=== PATIENT | female | born 1940 | race Caucasian/White ===

== ENCOUNTER 2018-05-31 09:10 | Inpatient (IN) ==
[~2018-05-31 09:10] MED LIST: LEVALBUTEROL 1.25 MG/3 ML NEB RESP TX SCH
[2018-05-31] MEDS ORDERED: ASPIRIN 325 MG TABLET PO STA (09:39)
[2018-05-31] MEDS ORDERED: DILTIAZEM 50 MG/10 ML VIAL IV STA (09:39)
[2018-05-31] MEDS ORDERED: SODIUM CHLORIDE 0.9% 500 ML IV STA (09:40)
[2018-05-31] MEDS ORDERED: DILTIAZEM 25 MG/5 ML VIAL IV ONE ×2 (10:02→18:00)
[2018-05-31 10:03] LABS: Basophils # 0.1 10*3/uL (0.0-0.2); Basophils % 0.5 % (0.0-0.8); Eosinophils % 0.1 % (0.00-10.9); Hematocrit 34.4 VOL% (35.7-47.0); Hemoglobin 11.2 GM/DL (12.0-16.0); Immature Granulocytes % 0.6 %; Immature Granulocytes Absolute 0.06 #; Lymphocytes # 0.9 10*3/uL (1.4-4.0); Lymphocytes % 8.9 % (21.3-54.2); Mean Corpuscular HGB Conc 32.6 GM/DL (32-36); Mean Corpuscular Hemoglobin 29 PG (27-34); Mean Corpuscular Volume 89.4 FL (87-102); Mean Platelet Volume 11.3 FL (9.6-12.0); Monocytes % 9.7 % (1.7-12.7); Neutrophils # 8.4 10*3/uL (1.4-7.4); Neutrophils % 80.2 % (38.7-73.9); Platelet Count 185 T/CUMM (130-400); Red Blood Count 3.85 MC/CUMM (3.8-5.5); Red Cell Distribution Width 13.7 % (9.3-17.3); White Blood Count 10.4 T/CUMM (4-12)
[2018-05-31] MEDS ORDERED: cefTRIAXone 1,000 MG in SODIUM CHLORIDE 0.9% 100 ML IV STA (10:08)
[2018-05-31] MEDS ORDERED: AZITHROMYCIN INJ 500 MG in SODIUM CHLORIDE 0.9% 250 ML IV STA (10:08)
[2018-05-31 10:17] LABS: INR 4.7
[2018-05-31 10:21] LABS: Lactic Acid 1.2 MMOL/L (0.4-2.0)
[2018-05-31 10:22] LABS: Troponin I < 0.015 NG/ML (0.00-0.045)
[2018-05-31 10:28] LABS: Albumin 2.8 G/DL (3.4-5.0); Bilirubin,Total 0.6 MG/DL (0.2-1.0); Calcium 8.7 MG/DL (8.5-10.1); Osmolality,Calculated 268.2 MOS/KG (273-304); Potassium 3.8 MMOL/L (3.5-5.1); Total Protein 6.7 G/DL (6.4-8.3)
[2018-05-31 10:30] LABS: PT Patient Result 50.8 SECS
[2018-05-31] MEDS ORDERED: FUROSEMIDE 40 MG/4 ML VIAL IV STA (10:37)
[2018-05-31] MEDS ORDERED: ONDANSETRON 4 MG/2 ML VIAL IV PRN (10:44)
[2018-05-31] MEDS ORDERED: ACETAMINOPHEN 325 MG TABLET PO PRN (10:44)
[2018-05-31] MEDS ORDERED: WARFARIN 5 MG TABLET PO SCH (13:30)
[2018-05-31] MEDS: methylPREDNISolone SOD SUC 40 MG/1 ML VIAL IV SCH (16:02)
[2018-05-31] MEDS: MAGNESIUM OXIDE 400 MG TABLET PO SCH ×2 (16:21→21:56)
[2018-05-31] MEDS ORDERED: LEVALBUTEROL 1.25 MG/3 ML NEB RESP TX ONE (17:50)
[2018-05-31] MEDS ORDERED: dilTIAZem Drip 125 MG/125 ML PREMIX IV SCH (18:00)
[2018-05-31] MEDS ORDERED: ALBUTEROL/IPRATROPIUM 3 ML NEB RESP TX SCH (19:00)
[2018-05-31] MEDS ORDERED: DILTIAZEM 30 MG TABLET PO SCH (21:00)
[2018-05-31] MEDS: SOTALOL 80 MG TABLET PO SCH (21:53)
[2018-05-31] MEDS: DOCUSATE SODIUM 100 MG CAPSULE PO SCH (21:56)
[2018-06-01] MEDS: LEVALBUTEROL 1.25 MG/3 ML NEB RESP TX SCH ×4 (01:10→19:12)
[2018-06-01] MEDS: methylPREDNISolone SOD SUC 40 MG/1 ML VIAL IV SCH ×2 (03:47→16:21)
[2018-06-01 06:27] LABS: Basophils % 0.2 % (0.0-0.8); Hematocrit 35.4 VOL% (35.7-47.0); Hemoglobin 10.9 GM/DL (12.0-16.0); INR 3.8; Immature Granulocytes % 0.3 %; Immature Granulocytes Absolute 0.02 #; Lymphocytes # 0.7 10*3/uL (1.4-4.0); Lymphocytes % 10.8 % (21.3-54.2); Mean Corpuscular HGB Conc 30.8 GM/DL (32-36); Mean Corpuscular Hemoglobin 28 PG (27-34); Mean Corpuscular Volume 91.9 FL (87-102); Mean Platelet Volume 12.3 FL (9.6-12.0); Monocytes # 0.2 10*3/uL (0.11-0.8); Monocytes % 2.3 % (1.7-12.7); Neutrophils # 5.5 10*3/uL (1.4-7.4); Neutrophils % 86.4 % (38.7-73.9); Platelet Count 185 T/CUMM (130-400); Red Blood Count 3.85 MC/CUMM (3.8-5.5); Red Cell Distribution Width 13.9 % (9.3-17.3); White Blood Count 6.4 T/CUMM (4-12)
[2018-06-01 06:50] LABS: Albumin 2.6 G/DL (3.4-5.0); Bilirubin,Total 0.5 MG/DL (0.2-1.0); Calcium 8.7 MG/DL (8.5-10.1); Osmolality,Calculated 279.7 MOS/KG (273-304); Potassium 3.8 MMOL/L (3.5-5.1); Thyroid Stimulating Hormone 0.197 uIU/ml (0.358-3.74)
[2018-06-01 07:13] LABS: PT Patient Result 40.5 SECS
[2018-06-01] MEDS ORDERED: LISINOPRIL 20 MG TABLET PO SCH (09:00)
[2018-06-01] MEDS: cefTRIAXone 1,000 MG in SYRINGE 1 EACH IV SCH (09:33)
[2018-06-01] MEDS: ASPIRIN EC 81 MG TABLET PO SCH (10:02)
[2018-06-01] MEDS: SOTALOL 80 MG TABLET PO SCH ×2 (10:02→22:05)
[2018-06-01] MEDS: DOCUSATE SODIUM 100 MG CAPSULE PO SCH ×2 (10:32→22:06)
[2018-06-01] MEDS: MAGNESIUM OXIDE 400 MG TABLET PO SCH ×4 (10:32→22:06)
[2018-06-01] MEDS ORDERED: PROPOFOL 200 MG/20 ML VIAL IV ONE (10:39)
[2018-06-01] MEDS: PANTOPRAZOLE 40 MG TABLET PO SCH (11:12)
[2018-06-01] MEDS: TERAZOSIN 10 MG CAPSULE PO SCH (11:12)
[2018-06-01] MEDS: AZITHROMYCIN INJ 250 MG in SODIUM CHLORIDE 0.9% 250 ML IV SCH (11:41)
[2018-06-01] MEDS: FUROSEMIDE 40 MG/4 ML VIAL IV SCH ×2 (12:08→16:21)
[2018-06-01] MEDS ORDERED: WARFARIN 5 MG TABLET PO SCH (18:00)
[2018-06-02] MEDS: LEVALBUTEROL 1.25 MG/3 ML NEB RESP TX SCH ×4 (00:48→19:37)
[2018-06-02 04:47] LABS: INR 3.7
[2018-06-02 04:57] LABS: Calcium 8.8 MG/DL (8.5-10.1); Osmolality,Calculated 288.5 MOS/KG (273-304); Potassium 3.8 MMOL/L (3.5-5.1)
[2018-06-02] MEDS: methylPREDNISolone SOD SUC 40 MG/1 ML VIAL IV SCH ×2 (05:10→16:50)
[2018-06-02 06:03] LABS: PT Patient Result 40.1 SECS
[2018-06-02] MEDS: cefTRIAXone 1,000 MG in SYRINGE 1 EACH IV SCH (10:03)
[2018-06-02] MEDS: SOTALOL 80 MG TABLET PO SCH ×2 (10:06→20:06)
[2018-06-02] MEDS: MAGNESIUM OXIDE 400 MG TABLET PO SCH ×4 (10:07→20:06)
[2018-06-02] MEDS: DOCUSATE SODIUM 100 MG CAPSULE PO SCH ×2 (10:08→20:06)
[2018-06-02] MEDS: PANTOPRAZOLE 40 MG TABLET PO SCH (10:08)
[2018-06-02] MEDS: FUROSEMIDE 40 MG/4 ML VIAL IV SCH (10:08)
[2018-06-02] MEDS: ASPIRIN EC 81 MG TABLET PO SCH (10:08)
[2018-06-02] MEDS: TERAZOSIN 10 MG CAPSULE PO SCH (12:11)
[2018-06-02] MEDS: AZITHROMYCIN INJ 250 MG in SODIUM CHLORIDE 0.9% 250 ML IV SCH (12:11)
[2018-06-02] MEDS: FUROSEMIDE 40 MG TABLET PO SCH (17:20)
[2018-06-02] MEDS ORDERED: dilTIAZem Drip 125 MG/125 ML PREMIX IV SCH (23:30)
[2018-06-03] MEDS: LEVALBUTEROL 1.25 MG/3 ML NEB RESP TX SCH ×3 (00:45→13:26)
[2018-06-03] MEDS: methylPREDNISolone SOD SUC 40 MG/1 ML VIAL IV SCH ×2 (04:28→17:19)
[2018-06-03 05:38] LABS: Basophils % 0.2 % (0.0-0.8); Hematocrit 32.3 VOL% (35.7-47.0); Hemoglobin 10.2 GM/DL (12.0-16.0); Immature Granulocytes % 1.3 %; Immature Granulocytes Absolute 0.15 #; Lymphocytes # 0.7 10*3/uL (1.4-4.0); Lymphocytes % 6.1 % (21.3-54.2); Mean Corpuscular HGB Conc 31.6 GM/DL (32-36); Mean Corpuscular Hemoglobin 29 PG (27-34); Mean Corpuscular Volume 92.3 FL (87-102); Mean Platelet Volume 11.5 FL (9.6-12.0); Monocytes # 0.7 10*3/uL (0.11-0.8); Neutrophils # 9.8 10*3/uL (1.4-7.4); Neutrophils % 86.4 % (38.7-73.9); Platelet Count 229 T/CUMM (130-400); White Blood Count 11.3 T/CUMM (4-12)
[2018-06-03 05:59] LABS: Calcium 8.6 MG/DL (8.5-10.1); Osmolality,Calculated 290.5 MOS/KG (273-304); Potassium 3.7 MMOL/L (3.5-5.1)
[2018-06-03 06:19] LABS: INR 2.9
[2018-06-03 06:58] LABS: PT Patient Result 30.7 SECS
[2018-06-03] MEDS: SOTALOL 80 MG TABLET PO SCH (09:35)
[2018-06-03] MEDS: PANTOPRAZOLE 40 MG TABLET PO SCH (09:37)
[2018-06-03] MEDS: ASPIRIN EC 81 MG TABLET PO SCH (09:37)
[2018-06-03] MEDS: MAGNESIUM OXIDE 400 MG TABLET PO SCH (09:37)
[2018-06-03] MEDS: FUROSEMIDE 40 MG TABLET PO SCH (09:37)
[2018-06-03] MEDS: DOCUSATE SODIUM 100 MG CAPSULE PO SCH (09:38)
[2018-06-03] MEDS: TERAZOSIN 10 MG CAPSULE PO SCH (09:39)
[2018-06-03] MEDS: cefTRIAXone 1,000 MG in SYRINGE 1 EACH IV SCH (09:40)
[2018-06-03] MEDS: AZITHROMYCIN INJ 250 MG in SODIUM CHLORIDE 0.9% 250 ML IV SCH (09:45)
[2018-06-03] MEDS ORDERED: DILTIAZEM 30 MG TABLET PO SCH (15:00)
[2018-06-03 16:08] VITALS: BP 160/84
[2018-06-03] MEDS ORDERED: WARFARIN 2.5 MG TABLET PO SCH (18:00)
[2018-06-04] MEDS ORDERED: MAGNESIUM OXIDE 400 MG TABLET PO SCH (09:00)
== END 2018-06-03 18:50 | disposition home health service (06) | DRG 193 ==
LOC: N.ED 09:10 → N.EDINP 10:44 → N.TELES 11:46
PROVIDERS: ADMIT Family Medicine; ATTEND Family Medicine

== ENCOUNTER 2018-06-07 15:24 | Inpatient (IN) ==
[2018-06-07] MEDS ORDERED: ROCURONIUM 100 MG/10 ML VIAL IV ONE (15:44)
[2018-06-07] MEDS ORDERED: ETOMIDATE 20 MG/10 ML VIAL IV ONE (15:44)
[2018-06-07] MEDS ORDERED: VECURONIUM 10 MG VIAL IV ONE (15:48)
[2018-06-07 16:15] LABS: Basophils % 0.1 % (0.0-0.8); Hematocrit 36.3 VOL% (35.7-47.0); Hemoglobin 12.1 GM/DL (12.0-16.0); Immature Granulocytes Absolute 0.13 #; Lymphocytes # 0.9 10*3/uL (1.4-4.0); Lymphocytes % 7.3 % (21.3-54.2); Mean Corpuscular HGB Conc 33.3 GM/DL (32-36); Mean Corpuscular Hemoglobin 29 PG (27-34); Mean Corpuscular Volume 87.3 FL (87-102); Mean Platelet Volume 10.9 FL (9.6-12.0); Monocytes # 0.7 10*3/uL (0.11-0.8); Monocytes % 5.2 % (1.7-12.7); Neutrophils # 10.7 10*3/uL (1.4-7.4); Neutrophils % 86.4 % (38.7-73.9); Platelet Count 255 T/CUMM (130-400); Red Blood Count 4.16 MC/CUMM (3.8-5.5); Red Cell Distribution Width 13.7 % (9.3-17.3); White Blood Count 12.4 T/CUMM (4-12)
[2018-06-07 16:23] LABS: ABG Base Excess 13.9 MMOL/L (-2.5-2.5); ABG HCO3 37.8 MMOL/L (20-26); ABG Oxygen Saturation 99.6 % (95-100); ABG PCO2 36.5 MM HG (35-48); ABG TCO2 32.1 MMOL/L (23-27); Pt O2 Delivery Device Ventilator
[2018-06-07 16:24] LABS: INR 1.5; PT Patient Result 16.6 SECS
[2018-06-07] MEDS ORDERED: PROPOFOL 1,000 MG/100 ML BOTTLE IV ONE (16:37)
[2018-06-07] MEDS: PROPOFOL 1,000 MG/100 ML BOTTLE IV SCH (16:40)
[2018-06-07 16:41] LABS: Alanine Aminotransferase 31 U/L (13-56); Albumin 2.3 G/DL (3.4-5.0); Alkaline Phosphatase 64 U/L (45-117); Apearance,Urine CLEAR (Clear); Aspartate Amino Transferase 27 U/L (0-37); Bilirubin,Urine Negative (Negative); Blood Urea Nitrogen 27 MG/DL (7-18); Blood, Urine Small mg/dL (Negative); Glucose 187 MG/DL (74-106); Glucose,Urine (UA) 50 mg/dL (Negative); Ketones,Urine Negative (Negative); Mucus,Urine Occasional /LPF (Occasional); Nitrite,Urine Negative (Negative); Osmolality,Calculated 277.2 MOS/KG (273-304); Protein,Urine Negative; RBC,Urine 2 /HPF (0-4); Sodium 134 MMOL/L (136-145); Troponin I 0.041 NG/ML (0.00-0.045); Urine Color Straw (Yellow); Urine Specific Gravity 1.006 (1.001-1.035); Urine Urobilinogen < 2.0 EU/DL (0.2-1.0); WBC,Urine 4 /HPF (0-6)
[2018-06-07 16:46] LABS: Barbiturates Screen,Urine Negative (Negative); Benzodiazepines Screen,Urine Negative (Negative); Cannabinoid Screen,Urine Negative (Negative); Opiate Screen,Urine Negative (Negative); Phencyclidine Screen,Urine Negative (Negative)
[2018-06-07 16:47] LABS: Potassium 2.4 MMOL/L (3.5-5.1)
[2018-06-07] MEDS ORDERED: MAGNESIUM SULF RIDER 2 GM in PREMIX 1 EACH IV STA (16:51)
[2018-06-07] MEDS ORDERED: POTASSIUM CHLORIDE RIDER 20 MEQ in PREMIX 1 EACH IV STA (16:51)
[2018-06-07] MEDS ORDERED: MAGNESIUM SULF RIDER 50 ML IV ONE (16:53)
[2018-06-07] MEDS ORDERED: FUROSEMIDE 40 MG/4 ML VIAL IV STA (16:55)
[2018-06-07] MEDS ORDERED: SODIUM CHLORIDE 0.9% IV STA (16:56)
[2018-06-07] MEDS ORDERED: POTASSIUM ACETATE IV STA (16:56)
[2018-06-07] MEDS ORDERED: POTASSIUM CHLORIDE INJ 40 MEQ in SODIUM CHLORIDE 0.9% 250 ML IV STA (17:02)
[2018-06-07] MEDS ORDERED: PHENYLEPHRINE DRIP 40 MG/250 ML PREMIX IV ONE (17:14)
[2018-06-07] MEDS ORDERED: ONDANSETRON 4 MG/2 ML VIAL IV PRN (17:42)
[2018-06-07] MEDS ORDERED: MAGNESIUM SULF RIDER 4 GM in PREMIX 1 EACH IV PRN (17:48)
[2018-06-07] MEDS ORDERED: DEXTROSE 50% 25 GM/50 ML VIAL IV PRN (17:52)
[2018-06-07] MEDS ORDERED: GLUCAGON 1 MG VIAL IM PRN (17:52)
[2018-06-07 17:54] LABS: ABG Base Excess 14.9 MMOL/L (-2.5-2.5); ABG HCO3 38.9 MMOL/L (20-26); ABG PCO2 34.2 MM HG (35-48); ABG TCO2 32.1 MMOL/L (23-27)
[2018-06-07 18:00] LABS: ABG PH 7.644 (7.35-7.45)
[2018-06-07] MEDS ORDERED: ATROPINE 1 MG/10 ML SYRINGE ONE (18:22)
[2018-06-07] MEDS ORDERED: ISOPROTERENOL IV PRN (18:29)
[2018-06-07] MEDS ORDERED: SODIUM CHLORIDE 0.9% IV PRN (18:29)
[2018-06-07] MEDS ORDERED: ATROPINE 1 MG/10 ML SYRINGE IV ONE (18:48)
[2018-06-07] MEDS: SODIUM CHLORIDE 0.9% 1,000 ML IV SCH (19:00)
[2018-06-07 19:05] LABS: ABG HCO3 25.1 MMOL/L (20-26); ABG PCO2 42.4 MM HG (35-48); ABG PH 7.397 (7.35-7.45); ABG PO2 66.7 MM HG (80-95); ABG TCO2 22.3 MMOL/L (23-27)
[2018-06-07] MEDS ORDERED: LIDOCAINE 1% 20 ML VIAL ONE (19:06)
[2018-06-07] MEDS ORDERED: HEPARIN/NACL 0.9% 2 UNITS/ML 500 ML IV ONE (19:06)
[2018-06-07] MEDS: INSULIN REGULAR 100 UNIT/ML SUBCUT SCH ×2 (20:18→23:53)
[2018-06-07] MEDS ORDERED: PHENYLEPHRINE DRIP 40 MG/250 ML PREMIX IV PRN (20:19)
[2018-06-07] MEDS: ENOXAPARIN 80 MG/0.8 ML SYRINGE SUBCUT SCH (22:15)
[2018-06-07] MEDS: HYDROCORTISONE 100 MG VIAL IV SCH (22:15)
[2018-06-07] MEDS ORDERED: SODIUM CHLORIDE 0.9% 250 ML IV ONE (22:24)
[2018-06-07] MEDS ORDERED: AMIODARONE INJ 150 MG in DEXTROSE 5% 100 ML IV ONE (23:06)
[2018-06-07] MEDS ORDERED: AMIODARONE 150 MG/3 ML VIAL ONE (23:08)
[2018-06-07] MEDS ORDERED: AMIODARONE 450 MG/9 ML VIAL IV ONE (23:10)
[2018-06-07] MEDS: POTASSIUM CHLORIDE RIDER 10 MEQ in PREMIX 1 EACH IV PRN (23:26)
[2018-06-07] MEDS ORDERED: AMIODARONE INJ 450 MG in DEXTROSE 5% 241 ML IV SCH (23:30)
[2018-06-08] MEDS: POTASSIUM CHLORIDE RIDER 10 MEQ in PREMIX 1 EACH IV PRN ×2 (00:27→01:34)
[2018-06-08] MEDS: PROPOFOL 1,000 MG/100 ML BOTTLE IV SCH ×4 (01:00→21:48)
[2018-06-08 01:31] LABS: Basophils % 0.1 % (0.0-0.8); Immature Granulocytes % 0.7 %; Lymphocytes # 0.9 10*3/uL (1.4-4.0); Lymphocytes % 6.2 % (21.3-54.2); Mean Corpuscular HGB Conc 33.3 GM/DL (32-36); Mean Corpuscular Hemoglobin 29 PG (27-34); Mean Corpuscular Volume 87.6 FL (87-102); Monocytes # 1.2 10*3/uL (0.11-0.8); Monocytes % 7.9 % (1.7-12.7); Neutrophils # 12.8 10*3/uL (1.4-7.4); Neutrophils % 85.1 % (38.7-73.9); Platelet Count 237 T/CUMM (130-400); Red Blood Count 4.11 MC/CUMM (3.8-5.5); Red Cell Distribution Width 13.9 % (9.3-17.3); White Blood Count 15.1 T/CUMM (4-12)
[2018-06-08] MEDS: SODIUM CHLORIDE 0.9% 1,000 ML IV SCH ×2 (02:00→10:00)
[2018-06-08 02:08] LABS: Calcium 7.8 MG/DL (8.5-10.1); Osmolality,Calculated 278.1 MOS/KG (273-304); Potassium 4.1 MMOL/L (3.5-5.1); Risk Ratio 3.14; VLDL CHOLESTEROL 24.8 MG/DL
[2018-06-08 03:46] LABS: ABG Base Excess 12.3 MMOL/L (-2.5-2.5); ABG Oxygen Saturation 99.5 % (95-100); ABG PCO2 29.7 MM HG (35-48); ABG TCO2 33.9 MMOL/L (23-27); Allen Test Positive; Pt O2 Delivery Device Ventilator
[2018-06-08 03:56] LABS: ABG PH 7.664 (7.35-7.45)
[2018-06-08] MEDS: HYDROCORTISONE 100 MG VIAL IV SCH ×3 (05:10→21:29)
[2018-06-08] MEDS ORDERED: AMIODARONE INJ 450 MG in DEXTROSE 5% 241 ML IV SCH (05:30)
[2018-06-08] MEDS: INSULIN REGULAR 100 UNIT/ML SUBCUT SCH ×4 (06:28→23:38)
[2018-06-08 07:20] LABS: ABG Base Excess 11.3 MMOL/L (-2.5-2.5); ABG HCO3 35.1 MMOL/L (20-26); ABG Oxygen Saturation 99.7 % (95-100); ABG PCO2 37.9 MM HG (35-48); ABG PH 7.566 (7.35-7.45); ABG TCO2 30.3 MMOL/L (23-27); Allen Test Positive; Pt O2 Delivery Device Ventilator
[2018-06-08] MEDS: ENOXAPARIN 80 MG/0.8 ML SYRINGE SUBCUT SCH ×2 (09:32→21:30)
[2018-06-08] MEDS: PANTOPRAZOLE 40 MG VIAL IV SCH (09:33)
[2018-06-09] MEDS: PROPOFOL 1,000 MG/100 ML BOTTLE IV SCH ×2 (03:58→09:00)
[2018-06-09 04:01] LABS: ABG Base Excess 10.3 MMOL/L (-2.5-2.5); ABG HCO3 34.1 MMOL/L (20-26); ABG Oxygen Saturation 99.2 % (95-100); ABG PCO2 43.1 MM HG (35-48); ABG PH 7.512 (7.35-7.45); ABG TCO2 30.8 MMOL/L (23-27); Allen Test Positive; Pt O2 Delivery Device Ventilator
[2018-06-09] MEDS: HYDROCORTISONE 100 MG VIAL IV SCH ×3 (05:05→21:17)
[2018-06-09] MEDS: INSULIN REGULAR 100 UNIT/ML SUBCUT SCH ×2 (05:37→12:32)
[2018-06-09] MEDS: SODIUM CHLORIDE 0.9% 1,000 ML IV SCH (06:00)
[2018-06-09 06:03] LABS: Basophils % 0.1 % (0.0-0.8); Hemoglobin 10.6 GM/DL (12.0-16.0); Immature Granulocytes % 0.7 %; Immature Granulocytes Absolute 0.08 #; Lymphocytes # 1.4 10*3/uL (1.4-4.0); Lymphocytes % 12.3 % (21.3-54.2); Mean Corpuscular HGB Conc 31.2 GM/DL (32-36); Mean Corpuscular Hemoglobin 29 PG (27-34); Mean Corpuscular Volume 91.6 FL (87-102); Mean Platelet Volume 11.8 FL (9.6-12.0); Monocytes # 0.8 10*3/uL (0.11-0.8); Monocytes % 7.4 % (1.7-12.7); Neutrophils # 8.8 10*3/uL (1.4-7.4); Neutrophils % 79.5 % (38.7-73.9); Platelet Count 166 T/CUMM (130-400); Red Blood Count 3.71 MC/CUMM (3.8-5.5); Red Cell Distribution Width 14.6 % (9.3-17.3); White Blood Count 11.1 T/CUMM (4-12)
[2018-06-09 06:27] LABS: Prealbumin 15.5 MG/DL (20-40)
[2018-06-09 06:42] LABS: Calcium 8.2 MG/DL (8.5-10.1); Osmolality,Calculated 283.4 MOS/KG (273-304); Potassium 2.8 MMOL/L (3.5-5.1)
[2018-06-09] MEDS: POTASSIUM CHLORIDE RIDER 10 MEQ in PREMIX 1 EACH IV PRN ×2 (06:50→09:53)
[2018-06-09] MEDS ORDERED: POTASSIUM CHLORIDE 20 MEQ/15 ML UDCUP PER TUBE ONE (08:04)
[2018-06-09] MEDS: PANTOPRAZOLE 40 MG VIAL IV SCH (09:52)
[2018-06-09] MEDS: ENOXAPARIN 80 MG/0.8 ML SYRINGE SUBCUT SCH ×2 (09:52→21:17)
[2018-06-09] MEDS ORDERED: LISINOPRIL 20 MG TABLET PO SCH (16:00)
[2018-06-09] MEDS: POTASSIUM CHLORIDE 20 MEQ TABLET PO PRN ×2 (21:17→23:16)
[2018-06-10] MEDS: SODIUM CHLORIDE 0.9% 1,000 ML IV SCH (02:21)
[2018-06-10 03:46] LABS: ABG Base Excess 5.5 MMOL/L (-2.5-2.5); ABG HCO3 29.4 MMOL/L (20-26); ABG Oxygen Saturation 96.9 % (95-100); ABG PCO2 52.9 MM HG (35-48); ABG PH 7.386 (7.35-7.45); ABG PO2 93.1 MM HG (80-95); ABG TCO2 28.8 MMOL/L (23-27); Allen Test Positive
[2018-06-10] MEDS: HYDROCORTISONE 100 MG VIAL IV SCH ×4 (05:30→21:28)
[2018-06-10 05:34] LABS: Basophils % 0.1 % (0.0-0.8); Hematocrit 31.3 VOL% (35.7-47.0); Hemoglobin 9.9 GM/DL (12.0-16.0); Immature Granulocytes % 1.1 %; Immature Granulocytes Absolute 0.12 #; Lymphocytes # 1.4 10*3/uL (1.4-4.0); Lymphocytes % 12.7 % (21.3-54.2); Mean Corpuscular HGB Conc 31.6 GM/DL (32-36); Mean Corpuscular Hemoglobin 29 PG (27-34); Mean Corpuscular Volume 92.9 FL (87-102); Mean Platelet Volume 12.1 FL (9.6-12.0); Monocytes # 0.9 10*3/uL (0.11-0.8); Monocytes % 8.3 % (1.7-12.7); Neutrophils # 8.3 10*3/uL (1.4-7.4); Neutrophils % 77.8 % (38.7-73.9); Platelet Count 153 T/CUMM (130-400); Red Blood Count 3.37 MC/CUMM (3.8-5.5); Red Cell Distribution Width 14.8 % (9.3-17.3); White Blood Count 10.7 T/CUMM (4-12)
[2018-06-10 06:01] LABS: Calcium 8.8 MG/DL (8.5-10.1); Potassium 4.1 MMOL/L (3.5-5.1)
[2018-06-10] MEDS: MAGNESIUM SULF RIDER 2 GM in PREMIX 1 EACH IV PRN (06:20)
[2018-06-10] MEDS ORDERED: WARFARIN 5 MG TABLET PO ONE (08:02)
[2018-06-10] MEDS ORDERED: ENOXAPARIN 40 MG/0.4 ML SYRINGE SUBCUT SCH (08:30)
[2018-06-10 08:34] LABS: INR 1.4
[2018-06-10] MEDS ORDERED: AMIODARONE INJ 150 MG in DEXTROSE 5% 100 ML IV ONE (08:50)
[2018-06-10] MEDS ORDERED: AMIODARONE 450 MG/9 ML VIAL IV ONE (08:59)
[2018-06-10] MEDS ORDERED: AMIODARONE INJ 450 MG in DEXTROSE 5% 241 ML IV SCH (09:00)
[2018-06-10] MEDS ORDERED: AMIODARONE 200 MG TABLET PO SCH (09:00)
[2018-06-10] MEDS: LISINOPRIL 20 MG TABLET PO SCH ×2 (09:19→21:21)
[2018-06-10] MEDS: PANTOPRAZOLE 40 MG VIAL IV SCH (09:19)
[2018-06-10] MEDS: cloNIDine 0.1 MG TABLET PO PRN (09:21)
[2018-06-10] MEDS: dilTIAZem Drip 125 MG/125 ML PREMIX IV SCH (10:15)
[2018-06-10] MEDS: AMIODARONE INJ 450 MG in DEXTROSE 5% 241 ML IV SCH (15:30)
[2018-06-10] MEDS: WARFARIN 2.5 MG TABLET PO SCH (17:15)
[2018-06-10] MEDS ORDERED: ZALEPLON 5 MG CAPSULE PO PRN (21:07)
[2018-06-11] MEDS: dilTIAZem Drip 125 MG/125 ML PREMIX IV SCH ×2 (04:13→11:12)
[2018-06-11 04:50] LABS: Calcium 7.7 MG/DL (8.5-10.1); Potassium 4.2 MMOL/L (3.5-5.1)
[2018-06-11 05:31] LABS: INR 2.8
[2018-06-11 05:33] LABS: PT Patient Result 29.9 SECS
[2018-06-11] MEDS: HYDROCORTISONE 100 MG VIAL IV SCH ×2 (06:00→17:14)
[2018-06-11] MEDS: AMIODARONE INJ 450 MG in DEXTROSE 5% 241 ML IV SCH ×2 (06:16→09:09)
[2018-06-11 06:39] LABS: Basophils % 0.1 % (0.0-0.8); Eosinophils % 0.3 % (0.00-10.9); Immature Granulocytes Absolute 0.11 #; Lymphocytes # 1.4 10*3/uL (1.4-4.0); Lymphocytes % 12.9 % (21.3-54.2); Mean Corpuscular HGB Conc 31.3 GM/DL (32-36); Mean Corpuscular Hemoglobin 30 PG (27-34); Mean Corpuscular Volume 94.4 FL (87-102); Mean Platelet Volume 11.5 FL (9.6-12.0); Monocytes % 8.9 % (1.7-12.7); Neutrophils # 8.2 10*3/uL (1.4-7.4); Neutrophils % 76.8 % (38.7-73.9); Platelet Count 150 T/CUMM (130-400); Red Blood Count 3.39 MC/CUMM (3.8-5.5); Red Cell Distribution Width 14.5 % (9.3-17.3); White Blood Count 10.6 T/CUMM (4-12)
[2018-06-11] MEDS ORDERED: ENOXAPARIN 40 MG/0.4 ML SYRINGE SUBCUT SCH (09:00)
[2018-06-11] MEDS ORDERED: FUROSEMIDE 40 MG/4 ML VIAL IV ONE (09:31)
[2018-06-11] MEDS: PANTOPRAZOLE 40 MG TABLET PO SCH (11:11)
[2018-06-11] MEDS: DILTIAZEM CD 180 MG CAPSULE PO SCH ×2 (11:11→21:21)
[2018-06-11] MEDS: AMIODARONE 200 MG TABLET PO SCH ×2 (11:11→21:21)
[2018-06-11] MEDS: LISINOPRIL 20 MG TABLET PO SCH ×2 (11:11→21:21)
[2018-06-11] MEDS: cloNIDine 0.1 MG TABLET PO PRN (17:13)
[2018-06-11] MEDS: WARFARIN 2.5 MG TABLET PO SCH (17:14)
[2018-06-12 04:51] LABS: Basophils % 0.1 % (0.0-0.8); Eosinophils % 0.3 % (0.00-10.9); Hemoglobin 9.8 GM/DL (12.0-16.0); Immature Granulocytes % 0.8 %; Immature Granulocytes Absolute 0.08 #; Lymphocytes # 1.5 10*3/uL (1.4-4.0); Lymphocytes % 15.4 % (21.3-54.2); Mean Corpuscular HGB Conc 31.6 GM/DL (32-36); Mean Corpuscular Hemoglobin 29 PG (27-34); Mean Corpuscular Volume 92.3 FL (87-102); Mean Platelet Volume 12.8 FL (9.6-12.0); Monocytes # 0.9 10*3/uL (0.11-0.8); Monocytes % 9.2 % (1.7-12.7); Neutrophils # 7.4 10*3/uL (1.4-7.4); Neutrophils % 74.2 % (38.7-73.9); Platelet Count 104 T/CUMM (130-400); Red Blood Count 3.36 MC/CUMM (3.8-5.5); Red Cell Distribution Width 14.2 % (9.3-17.3); White Blood Count 9.9 T/CUMM (4-12)
[2018-06-12 04:53] LABS: INR 1.5; PT Patient Result 16.6 SECS
[2018-06-12 05:01] LABS: Calcium 8.2 MG/DL (8.5-10.1); Osmolality,Calculated 274.7 MOS/KG (273-304); Potassium 3.1 MMOL/L (3.5-5.1)
[2018-06-12] MEDS: HYDROCORTISONE 100 MG VIAL IV SCH ×2 (05:43→17:53)
[2018-06-12] MEDS ORDERED: WARFARIN 10 MG TABLET PO ONE (07:23)
[2018-06-12] MEDS: ENOXAPARIN 80 MG/0.8 ML SYRINGE SUBCUT SCH ×2 (07:58→20:13)
[2018-06-12] MEDS: POTASSIUM CHLORIDE 20 MEQ TABLET PO PRN ×4 (07:58→16:28)
[2018-06-12] MEDS: MAGNESIUM CHLORIDE 64 MG TABLET PO SCH ×2 (09:20→20:13)
[2018-06-12] MEDS: DILTIAZEM CD 180 MG CAPSULE PO SCH ×2 (09:20→20:13)
[2018-06-12] MEDS: PANTOPRAZOLE 40 MG TABLET PO SCH (09:20)
[2018-06-12] MEDS: POTASSIUM CHLORIDE 20 MEQ TABLET PO SCH ×2 (09:20→20:13)
[2018-06-12] MEDS: LISINOPRIL 20 MG TABLET PO SCH ×2 (09:21→20:13)
[2018-06-12] MEDS: AMIODARONE 200 MG TABLET PO SCH ×2 (09:21→20:16)
[2018-06-13 05:06] LABS: Basophils % 0.2 % (0.0-0.8); Eosinophils # 0.1 10*3/uL (0.0-0.87); Eosinophils % 0.8 % (0.00-10.9); Hematocrit 33.8 VOL% (35.7-47.0); Hemoglobin 10.6 GM/DL (12.0-16.0); Immature Granulocytes % 0.8 %; Immature Granulocytes Absolute 0.07 #; Lymphocytes # 1.6 10*3/uL (1.4-4.0); Lymphocytes % 16.7 % (21.3-54.2); Mean Corpuscular HGB Conc 31.4 GM/DL (32-36); Mean Corpuscular Hemoglobin 29 PG (27-34); Mean Corpuscular Volume 93.1 FL (87-102); Mean Platelet Volume 12.1 FL (9.6-12.0); Monocytes # 0.8 10*3/uL (0.11-0.8); Monocytes % 8.7 % (1.7-12.7); Neutrophils # 6.8 10*3/uL (1.4-7.4); Neutrophils % 72.8 % (38.7-73.9); Platelet Count 147 T/CUMM (130-400); Red Blood Count 3.63 MC/CUMM (3.8-5.5); Red Cell Distribution Width 14.6 % (9.3-17.3); White Blood Count 9.3 T/CUMM (4-12)
[2018-06-13 05:15] LABS: INR 2.1
[2018-06-13 05:24] LABS: Calcium 8.1 MG/DL (8.5-10.1); Osmolality,Calculated 280.4 MOS/KG (273-304); Potassium 4.1 MMOL/L (3.5-5.1)
[2018-06-13 05:26] LABS: PT Patient Result 22.7 SECS
[2018-06-13] MEDS: HYDROCORTISONE 100 MG VIAL IV SCH ×2 (06:03→17:25)
[2018-06-13] MEDS: ENOXAPARIN 40 MG/0.4 ML SYRINGE SUBCUT SCH (07:21)
[2018-06-13] MEDS: AMIODARONE 200 MG TABLET PO SCH ×2 (09:19→21:49)
[2018-06-13] MEDS: POTASSIUM CHLORIDE 20 MEQ TABLET PO SCH ×2 (09:19→21:49)
[2018-06-13] MEDS: LISINOPRIL 20 MG TABLET PO SCH ×2 (09:19→21:48)
[2018-06-13] MEDS: DILTIAZEM CD 180 MG CAPSULE PO SCH ×2 (09:19→21:48)
[2018-06-13] MEDS: PANTOPRAZOLE 40 MG TABLET PO SCH (09:19)
[2018-06-13] MEDS: MAGNESIUM CHLORIDE 64 MG TABLET PO SCH ×2 (09:19→21:49)
[2018-06-13] MEDS ORDERED: PROPOFOL 200 MG/20 ML VIAL IV ONE (12:15)
[2018-06-13] MEDS ORDERED: WARFARIN 5 MG TABLET PO SCH (18:00)
[2018-06-14] MEDS: HYDROCORTISONE 100 MG VIAL IV SCH (05:50)
[2018-06-14] MEDS: ENOXAPARIN 40 MG/0.4 ML SYRINGE SUBCUT SCH (05:52)
[2018-06-14 06:40] LABS: Basophils % 0.1 % (0.0-0.8); Eosinophils # 0.1 10*3/uL (0.0-0.87); Eosinophils % 0.6 % (0.00-10.9); Hematocrit 31.6 VOL% (35.7-47.0); Hemoglobin 9.8 GM/DL (12.0-16.0); Immature Granulocytes % 0.6 %; Immature Granulocytes Absolute 0.05 #; Lymphocytes # 1.5 10*3/uL (1.4-4.0); Lymphocytes % 18.6 % (21.3-54.2); Mean Corpuscular Hemoglobin 29 PG (27-34); Mean Platelet Volume 11.7 FL (9.6-12.0); Monocytes # 0.8 10*3/uL (0.11-0.8); Monocytes % 10.4 % (1.7-12.7); Neutrophils # 5.5 10*3/uL (1.4-7.4); Neutrophils % 69.7 % (38.7-73.9); Platelet Count 180 T/CUMM (130-400); Red Blood Count 3.36 MC/CUMM (3.8-5.5); Red Cell Distribution Width 14.7 % (9.3-17.3); White Blood Count 7.9 T/CUMM (4-12)
[2018-06-14 06:48] LABS: INR 1.9
[2018-06-14 06:59] LABS: Calcium 8.1 MG/DL (8.5-10.1); Osmolality,Calculated 276.5 MOS/KG (273-304); Potassium 4.1 MMOL/L (3.5-5.1)
[2018-06-14] MEDS: DILTIAZEM CD 180 MG CAPSULE PO SCH (09:08)
[2018-06-14] MEDS: MAGNESIUM CHLORIDE 64 MG TABLET PO SCH (09:08)
[2018-06-14] MEDS: PANTOPRAZOLE 40 MG TABLET PO SCH (09:08)
[2018-06-14] MEDS: AMIODARONE 200 MG TABLET PO SCH (09:09)
[2018-06-14] MEDS: LISINOPRIL 20 MG TABLET PO SCH (09:09)
[2018-06-14] MEDS: POTASSIUM CHLORIDE 20 MEQ TABLET PO SCH (09:09)
[2018-06-14] MEDS ORDERED: MAGNESIUM OXIDE 400 MG TABLET PO SCH (11:00)
[2018-06-14] MEDS: MAGNESIUM SULF RIDER 2 GM in PREMIX 1 EACH IV PRN (12:41)
[2018-06-14 13:01] VITALS: BP 154/78
== END 2018-06-14 15:36 | disposition home health service (06) | DRG 308 ==
LOC: EDUNIT# → EDBD → N.ED 15:24 → SUATTDRO 17:42 → N.EDINP 17:42 → N.ICU 18:36 → N.TELES 06-11 14:55
PROVIDERS: ADMIT Family Medicine; ATTEND Internal Medicine

== ENCOUNTER 2022-05-03 10:44 | Inpatient (IN) ==
[2022-05-03 11:41] LABS: Albumin 3.2 G/DL (3.4-5.0); Bilirubin,Total 0.8 MG/DL (0.20-1.00); Calcium 8.9 MG/DL (8.5-10.1); Osmolality,Calculated 283.3 MOS/KG (273-304); Potassium 4.5 MMOL/L (3.5-5.1)
[2022-05-03 11:43] LABS: Basophils # 0.1 10*3/uL (0.0-0.2); Basophils % 0.4 % (0.0-0.8); Eosinophils % 0.1 % (0.00-10.9); Hematocrit 36.7 VOL% (35.7-47.0); Hemoglobin 11.8 GM/DL (12.0-16.0); Immature Granulocytes % 0.7 %; Immature Granulocytes Absolute 0.09 #; Lymphocytes # 1.1 10*3/uL (1.4-4.0); Lymphocytes % 8.3 % (21.3-54.2); Mean Corpuscular HGB Conc 32.2 GM/DL (32-36); Mean Corpuscular Volume 94.8 FL (87-102); Mean Platelet Volume 11.9 FL (9.6-12.0); Monocytes # 1.1 10*3/uL (0.11-0.8); Monocytes % 8.1 % (1.7-12.7); Neutrophils % 82.4 % (38.7-73.9); Platelet Count 205 T/CUMM (130-400); Red Blood Count 3.87 MC/CUMM (3.8-5.5); Red Cell Distribution Width 14.6 % (9.3-17.3); White Blood Count 13.2 T/CUMM (4-12)
[2022-05-03] MEDS ORDERED: MEROPENEM 500 MG in SODIUM CHLORIDE 0.9% 100 ML IV ONE (12:04)
[2022-05-03 12:13] LABS: Platelet Estimate Normal
[2022-05-03] MEDS ORDERED: ACETAMINOPHEN 325 MG TABLET PO PRN (12:39)
[2022-05-03] MEDS ORDERED: hydrALAZINE 20 MG/1 ML VIAL IV PRN (12:39)
[2022-05-03] MEDS ORDERED: SIMETHICONE CHEW 125 MG TABLET PO PRN (12:39)
[2022-05-03] MEDS ORDERED: ONDANSETRON 4 MG/2 ML VIAL IV PRN (12:39)
[2022-05-03] MEDS ORDERED: BISACODYL 5 MG TABLET PO PRN (12:39)
[2022-05-03] MEDS ORDERED: guaiFENesin/DM ER 600-30 MG TABLET PO PRN (12:39)
[2022-05-03] MEDS ORDERED: DOCUSATE SODIUM 100 MG CAPSULE PO PRN (12:39)
[2022-05-03] MEDS ORDERED: cloNIDine 0.1 MG TABLET PO PRN (12:43)
[2022-05-03] MEDS: ALBUTEROL/IPRATROPIUM 3 ML NEB RESP TX SCH ×2 (13:20→19:11)
[2022-05-03] MEDS: FUROSEMIDE 40 MG/4 ML VIAL IV SCH ×2 (13:35→21:06)
[2022-05-03] MEDS: LEVOFLOXACIN INJ 750 MG/150 ML PREMIX IV SCH (13:40)
[2022-05-03 14:02] LABS: INR 2.6; PT Patient Result 26.6 SECS (10.1-12.1)
[2022-05-03] MEDS: lisinopriL 20 MG TABLET PO SCH (21:07)
[2022-05-03] MEDS: MAGNESIUM OXIDE 400 MG TABLET PO SCH (21:07)
[2022-05-04 04:37] LABS: Basophils # 0.1 10*3/uL (0.0-0.2); Basophils % 0.5 % (0.0-0.8); Eosinophils % 0.1 % (0.00-10.9); Hematocrit 31.5 VOL% (35.7-47.0); Immature Granulocytes % 0.3 %; Immature Granulocytes Absolute 0.03 #; Lymphocytes # 1.5 10*3/uL (1.4-4.0); Lymphocytes % 15.8 % (21.3-54.2); Mean Corpuscular HGB Conc 31.7 GM/DL (32-36); Mean Corpuscular Volume 95.2 FL (87-102); Mean Platelet Volume 12.4 FL (9.6-12.0); Neutrophils % 72.3 % (38.7-73.9); Platelet Count 167 T/CUMM (130-400); Red Blood Count 3.31 MC/CUMM (3.8-5.5); Red Cell Distribution Width 14.6 % (9.3-17.3); White Blood Count 9.4 T/CUMM (4-12)
[2022-05-04 04:45] LABS: INR 2.2; PT Patient Result 22.6 SECS (10.1-12.1)
[2022-05-04 05:03] LABS: Albumin 2.5 G/DL (3.4-5.0); Bilirubin,Total 0.7 MG/DL (0.20-1.00); Calcium 8.5 MG/DL (8.5-10.1); Osmolality,Calculated 282.3 MOS/KG (273-304); Potassium 3.9 MMOL/L (3.5-5.1); Risk Ratio 1.43; Thyroid Stimulating Hormone 0.573 uIU/ml (0.358-3.74); Total Protein 6.2 G/DL (6.4-8.2); VLDL Cholesterol 10.4 MG/DL
[2022-05-04] MEDS: ALBUTEROL/IPRATROPIUM 3 ML NEB RESP TX SCH ×4 (07:56→18:45)
[2022-05-04] MEDS: MAGNESIUM OXIDE 400 MG TABLET PO SCH ×2 (09:23→20:48)
[2022-05-04] MEDS: lisinopriL 20 MG TABLET PO SCH ×2 (09:23→20:48)
[2022-05-04] MEDS: ASPIRIN EC 81 MG TABLET PO SCH (09:23)
[2022-05-04] MEDS: PANTOPRAZOLE 40 MG TABLET PO SCH (09:24)
[2022-05-04] MEDS: CHOLECALCIFEROL 5,000 UNIT TABLET PO SCH (09:24)
[2022-05-04] MEDS: AMIODARONE 200 MG TABLET PO SCH (09:24)
[2022-05-04] MEDS: amLODIPine 10 MG TABLET PO SCH (09:24)
[2022-05-04] MEDS: FUROSEMIDE 40 MG/4 ML VIAL IV SCH (09:24)
[2022-05-04] MEDS: LEVOFLOXACIN INJ 750 MG/150 ML PREMIX IV SCH (14:40)
[2022-05-04] MEDS ORDERED: WARFARIN 2.5 MG TABLET PO SCH (18:00)
[2022-05-05] MEDS: ALBUTEROL/IPRATROPIUM 3 ML NEB RESP TX SCH ×2 (00:16→07:59)
[2022-05-05] MEDS: MAGNESIUM OXIDE 400 MG TABLET PO SCH (08:46)
[2022-05-05] MEDS: amLODIPine 10 MG TABLET PO SCH (08:47)
[2022-05-05] MEDS: ASPIRIN EC 81 MG TABLET PO SCH (08:47)
[2022-05-05] MEDS: AMIODARONE 200 MG TABLET PO SCH (08:47)
[2022-05-05] MEDS: LEVOFLOXACIN INJ 750 MG/150 ML PREMIX IV SCH (08:47)
[2022-05-05] MEDS: CHOLECALCIFEROL 5,000 UNIT TABLET PO SCH (08:47)
[2022-05-05] MEDS: PANTOPRAZOLE 40 MG TABLET PO SCH (08:47)
[2022-05-05] MEDS: lisinopriL 20 MG TABLET PO SCH (08:47)
[2022-05-05 09:02] LABS: Calcium 8.9 MG/DL (8.5-10.1); Potassium 3.9 MMOL/L (3.5-5.1)
[2022-05-05 12:16] VITALS: BP 131/55
== END 2022-05-05 12:27 | disposition home or self-care (01) | DRG 193 ==
LOC: N.ED 10:44 → N.EDINP 12:39 → SUATTDRO 12:39 → N.5E 15:56
PROVIDERS: ADMIT Internal Medicine; ATTEND Internal Medicine